=== PATIENT | male | born 1990 | race Caucasian/White ===

== ENCOUNTER 2021-09-23 07:11 | Day surgery (SDC) | payer OTHER ==
[~2021-09-23] VITALS: Ht 180.3 cm; Wt 102.0 kg
[2021-09-23] MEDS ORDERED: PRILOSEC 20MG20 MG PO (08:04)
[2021-09-23] MEDS ORDERED: SYNTHROID0.1 MG/TAB PO (08:04)
[2021-09-23] MEDS ORDERED: VALTREX1 GM PO (08:05)
[2021-09-23] MEDS ORDERED: SUDAFED (08:06)
[2021-09-23] MEDS ORDERED: NAPROSYN500 MG (08:07)
[2021-09-23] MEDS ORDERED: FLEXERIL 1010 MG/TAB PO (08:07)
[2021-09-23 08:20] VITALS: BP 147/100; PULSE 78; TEMP 98.7
[2021-09-23] MEDS ORDERED: BENTYL 10MG10 MG/CAP PO (09:24)
[2021-09-23 09:35] VITALS: BP 141/100; PULSE 75; TEMP 97.5
[2021-09-23 09:50] VITALS: BP 147/100; PULSE 80
[2021-09-23 10:05] VITALS: BP 152/102; PULSE 72
--- NOTE | 2021-09-23 10:25 | NUR ---
0935 PT RETURNED TO [facility] VIA CART. TRANSFERRED TO CHAIR WITH RN ASSIST. ALERT AND ORIENTED. MONITORS ATTACHED, INTERVALS AND ALARMS SET. VSS AND WITHIN PREPROCEDURE RANGE. PT DENIES PAIN OR NAUSEA. FOOD AND DRINK PROVIDED. CALL LIGHT IN REACH. 0950 VSS. PT DENIES DISCOMFORT. TOLERATING FOOD AND DRINK WELL. 1005 VSS. EDUCATED PT AND RISK ASSOCIATED WITH UNTREATED HYPERTENSION. ENCOURAGED PT TO MAKE APPOINTMENT WITH PCP. PT VERBALIZED UNDERSTANDING AND REPORTS HOME BP IS NOT USUALLY HIGH. PT DENIES DISCOMFORT. REVIEWED DISCHARGE INSTRUCTIONS AND EDUCATION MATERIAL, ANSWERED ALL QUESTIONS. IV REMOVED WITHOUT COMPLICATIONS. PT ALLOWED TO DRESS. 1025 TRANSFERRED PT VIA WHEELCHAIR TO PERSONAL VEHICLE TO BE DRIVEN HOME BY [employer].
== END 2021-09-23 10:25 | disposition home or self-care (01) ==
LOC: SDCO 07:11
DX: R19.7 Diarrhea, unspecified (principal); K64.0 First degree hemorrhoids; K29.30 Chronic superficial gastritis without bleeding; R14.0 Abdominal distension (gaseous); K21.9 Gastro-esophageal reflux disease without esophagitis; Z86.16 Personal history of COVID-19; Z79.899 Other long term (current) drug therapy
CPT/HCPCS: J2704; J7120